=== PATIENT | male | born 1995 | race Caucasian/White ===

== ENCOUNTER 2019-12-03 18:26 | Emergency (ER) | payer MEDICAID ==
[~2019-12-03] VITALS: Ht 185.4 cm; Wt 69.8 kg
[2019-12-03 18:38] VITALS: BP 135/81
[2019-12-03] MEDS ORDERED: AZITHROMYCIN 500 MG TABLET PO ONE (19:00)
[2019-12-03] MEDS ORDERED: CEFTRIAXONE 250 MG IM ONE (19:00)
[2019-12-03] MEDS ORDERED: AZITHROMYCIN 500 MG TABLET ONE (19:12)
[2019-12-03] MEDS ORDERED: LIDOCAINE-MPF 1%, 2ML ONE (19:12)
[2019-12-03] MEDS ORDERED: CEFTRIAXONE 250 MG ONE (19:12)
== END 2019-12-03 19:42 | disposition home or self-care (01) ==
LOC: ED 19:35
DX: A74.9 Chlamydial infection, unspecified (principal); F17.200 Nicotine dependence, unspecified, uncomplicated
CPT/HCPCS: 99282

== ENCOUNTER 2020-12-08 17:18 | Emergency (ER) | payer MEDICAID ==
[~2020-12-08] VITALS: Ht 188 cm; Wt 79.5 kg
[2020-12-08 17:44] VITALS: BP 121/74
--- NOTE | 2020-12-08 18:34 | NUR ---
Patient given discharge instructions and they have confirmed that they understand the instructions. Patient ambulatory with steady gait.
== END 2020-12-08 18:35 | disposition home or self-care (01) ==
LOC: ED 17:45
DX: B86 Scabies (principal); F17.210 Nicotine dependence, cigarettes, uncomplicated
CPT/HCPCS: 99281; 99406

== ENCOUNTER 2021-01-15 12:37 | Emergency (ER) | payer MEDICAID ==
[~2021-01-15] VITALS: Ht 188 cm; Wt 78.3 kg
[2021-01-15 12:45] VITALS: BP 119/68
== END 2021-01-15 13:48 | disposition home or self-care (01) ==
LOC: ED 13:42
DX: B86 Scabies (principal)
CPT/HCPCS: 99283

== ENCOUNTER 2021-03-19 20:56 | Emergency (ER) | payer MEDICAID ==
[~2021-03-19] VITALS: Ht 188 cm; Wt 69.8 kg
[2021-03-19 20:58] VITALS: BP 117/70
--- NOTE | 2021-03-19 22:08 | NUR ---
Sherry bourne in [facility] - 03/19/21 at [id number] by MAT CALLED FOR PIT. NA X 1
--- NOTE | 2021-03-19 22:08 | NUR ---
NO ANSWER IN LOBBY WHEN CALLED
--- NOTE | 2021-03-19 22:30 | NUR ---
NA X 2
--- NOTE | 2021-03-19 23:05 | NUR ---
NA X 3
== END 2021-03-19 23:07 | disposition left against medical advice (07) ==
LOC: ED 21:26
DX: M54.2 Cervicalgia (principal); Z53.21 Procedure and treatment not carried out due to patient leaving prior to being seen by health care provider

== ENCOUNTER 2021-07-21 12:55 | Emergency (ER) | payer MEDICAID ==
--- NOTE | 2021-07-21 13:45 | NUR ---
CALLED FOR PT. PT NOT IN LOBBY
--- NOTE | 2021-07-21 15:07 | NUR ---
wendy RN: attempted to call pt for triage, no answer in lobby, this is attempt #3
== END 2021-07-21 15:40 | disposition left against medical advice (07) ==
LOC: ED 13:15
DX: L02.811 Cutaneous abscess of head [any part, except face] (principal); Z53.21 Procedure and treatment not carried out due to patient leaving prior to being seen by health care provider

== ENCOUNTER 2021-07-23 08:35 | Emergency (ER) | payer MEDICAID ==
[~2021-07-23] VITALS: Ht 185.4 cm; Wt 73.4 kg
[2021-07-23] MEDS ORDERED: HYDROcodone/APAP 5/325 TABLET ONE (10:47)
[2021-07-23 10:50] VITALS: BP 125/86
[2021-07-23] MEDS ORDERED: HYDROcodone/APAP 5/325 TABLET PO ONE (11:00)
== END 2021-07-23 10:54 | disposition home or self-care (01) ==
LOC: ED 08:57
DX: K02.9 Dental caries, unspecified (principal); F17.200 Nicotine dependence, unspecified, uncomplicated
CPT/HCPCS: 99283

== ENCOUNTER 2021-07-26 13:27 | Emergency (ER) | payer MEDICAID ==
[~2021-07-26] VITALS: Ht 185.4 cm; Wt 74.3 kg
[2021-07-26 13:50] VITALS: BP 113/65
[2021-07-26] MEDS ORDERED: BUPIVACAINE 0.25% ONE (13:59)
[2021-07-26] MEDS ORDERED: LIDOCAINE-MPF 1%, 5ML ONE (13:59)
[2021-07-26] MEDS ORDERED: LIDOCAINE-MPF 1%, 5ML INFIL ONE (14:00)
[2021-07-26] MEDS ORDERED: BUPIVACAINE/PF-EPI 0.25% 1:200K SQ ONE (14:00)
== END 2021-07-26 14:22 | disposition home or self-care (01) ==
LOC: ED 14:10
DX: K02.9 Dental caries, unspecified (principal); F17.210 Nicotine dependence, cigarettes, uncomplicated
CPT/HCPCS: 64400; 99284; 99406

== ENCOUNTER 2021-08-12 00:19 | Emergency (ER) | payer MEDICAID ==
[~2021-08-12] VITALS: Ht 185.4 cm; Wt 73.0 kg
--- NOTE | 2021-08-12 00:24 | NUR ---
NIL for triage.
[2021-08-12 00:25] VITALS: BP 131/73
--- NOTE | 2021-08-12 01:40 | NUR ---
Patient stated to registrations that he is leaving. Aprild.
== END 2021-08-12 01:42 | disposition left against medical advice (07) ==
LOC: ED 00:30
DX: K08.89 Other specified disorders of teeth and supporting structures (principal); Z53.21 Procedure and treatment not carried out due to patient leaving prior to being seen by health care provider

== ENCOUNTER 2021-08-12 03:34 | Emergency (ER) | payer MEDICAID ==
[~2021-08-12] VITALS: Ht 185.4 cm; Wt 74.2 kg
[2021-08-12 03:39] VITALS: BP 133/69
--- NOTE | 2021-08-12 05:25 | NUR ---
PT. TO ROOM FROM LOBBY.
[2021-08-12] MEDS ORDERED: BUPIVACAINE/PF 0.25% INFIL STA (05:36)
[2021-08-12] MEDS ORDERED: BUPIVACAINE 0.25% ONE (05:41)
== END 2021-08-12 06:23 | disposition home or self-care (01) ==
LOC: ED 05:32
DX: K02.9 Dental caries, unspecified (principal); K08.89 Other specified disorders of teeth and supporting structures
CPT/HCPCS: 64400; 99284